=== PATIENT | male | born 1995 | race Caucasian/White ===

== ENCOUNTER 2017-09-09 23:26 | Emergency (ER) | payer BC ==
[~2017-09-09] VITALS: Ht 180.3 cm; Wt 98.6 kg
[2017-09-09 23:32] VITALS: TEMP 36.7; Ht 180.3 cm; Wt 98.6 kg
[2017-09-10] MEDS ORDERED: OPTIRAY 320 IV PRN
[2017-09-10] MEDS: ACETAMINOPHEN 500 MG TAB PO STA (00:04)
[2017-09-10 00:11] LABS: ISTAT IONIZED CALCIUM 1.27 mmol/l (1.12-1.32); ISTAT POTASSIUM 4.1 mEq/L (3.3-5.0)
[2017-09-10 00:49] VITALS: BP 124/82; PULSE 82; O2SAT 97
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
--- NOTE | 2017-09-10 06:56 | DIAGNOSTIC IMAGING REPORT ---
NECK ANGIO WITH CONTRAST HISTORY: Trauma pain TECHNIQUE: Multiaxial CT images of the neck were performed following the intravenous administration of contrast to evaluate the major cervical vessels. Maximum intensity projection images were also obtained. All measurements were calculated based on NASCET criteria. A dose lowering technique was utilized adhering to the principles of ALARA. COMPARISON STUDY: None. FINDINGS: The aortic arch and proximal great vessels are widely patent. There is no significant stenosis, occlusion, or dissection identified within the bilateral common carotid, internal carotid, or vertebral arteries. Vertebral column is unremarkable. There is an unfused spinous process tip of C7 considered a nonacute or congenital. IMPRESSION: No significant stenosis, occlusion, or dissection identified within the carotid or vertebral arteries. No acute process of the cervical spine. The above report was generated using voice recognition software. It may contain grammatical, syntax or spelling errors. Electronically signed by: Michael Smith M.D. 09/10/2017 6:55 AM Dictated Date/Time: 09/10/2017 6:52 AM
== END 2017-09-10 00:50 | disposition home or self-care (01) ==
LOC: C.EDB 23:27 → C.EDA 09-10 00:50
DX: S19.80XA Other specified injuries of unspecified part of neck, initial encounter (principal); W21.210A Struck by ice hockey stick, initial encounter